=== PATIENT | male | born 1950 | race American Indian/Alaskan Native ===

== ENCOUNTER 2017-08-13 09:10 | Day surgery (SDC) | payer BC, MEDICARE ==
[~2017-08-13 09:10] MED LIST: NACL 0.9% 1000 ML 1,000 ML ONE
[2017-08-13] MEDS ORDERED: WATER FOR IRRIG STERILE IR ONE (09:50)
[2017-08-13] MEDS ORDERED: DIPRIVAN 10 MG/ML IV ONE ×2 (09:58→09:59)
--- NOTE | 2017-08-13 09:58 | Anesthesia Consultation ---
Anesthesia Consult and Med Hx - Airway Anesthetic Teeth Evaluation: Good ROM Head & Neck: Adequate Mental/Hyoid Distance: Adequate Mallampati Class: Class III Intubation Access Assessment: Probably Good - Pulmonary Exam CTA: Yes - Cardiac Exam Cardiac Exam: No Murmur - Pre-Operative Health Status ASA Pre-Surgery Classification: ASA3 Proposed Anesthetic Plan: MAC - Pulmonary Hx Smoking: Yes (CIGARETTES 1/2 TO 1 PPD X 51 YRS) Hx Sleep Apnea: No - Cardiovascular System Hx Hypertension: Yes (FOR 20 YRS, DR. AMBRIZ- PCP) - Central Nervous System Hx Psychiatric Problems: No - Other Systems Hx Alcohol Use: Yes (3 drinks per week) Hx Cancer: Yes (CHRONIC LYMPHOCYTIC LEUKEMIA,DX: IN 2007,LAST CHEMO 12/2011) Hx Obesity: No
[2017-08-13] MEDS ORDERED: VERSED ONE (09:59)
--- NOTE | 2017-08-13 09:59 | Anesthesia Day of Surgery ---
Anesthesia Day of Surgery - Day of Surgery Patient Examined: Yes Patient H&P Reviewed: Yes Patient is NPO: Yes Beta Blockers: No
--- NOTE | 2017-08-13 10:02 | Short Stay Summary ---
Short Stay Documentation Date of service: 08/13/17 Narrative H&P: Colonoscopy for history of polyps 2008 and 2012. - History Principal diagnosis: history of colon polyps H&P: obtained from office - Allergies and Medications Current Medications: Allergies No Known Allergies Allergy (Verified 08/08/17 10:58) Home Medications Medication Instructions Recorded Confirmed Last Taken Type Diltiazem [Cardizem] 30 mg PO QDAY 11/29/12 05/04/14 05/04/14 04:00 History Dutasteride/Tamsulosin HCl [Mary 1 each PO QDAY 11/29/12 05/04/14 05/03/14 History 0.5-0.4 mg] Solifenacin Succinate [Vesicare] 10 mg PO QDAY 11/29/12 05/04/14 05/03/14 05:00 History Tolterodine Tartrate [Tolterodine 4 mg PO QDAY 05/01/14 05/01/14 Unknown History Tartrate ER] Vitamin B Complex [B Complex] 1 each PO DAILY 05/01/14 05/04/14 05/03/14 History Docusate Sodium [Colace] 100 mg PO BID PRN #30 capsule 05/04/14 Unknown Rx HYDROcodone/APAP 5-325 [[place] 1 each PO Q4HR PRN #30 tablet 05/04/14 Unknown Rx 5/325] - Hospital course Hospital course: Uneventful colonoscopy - Disposition Condition at discharge: Good Disposition: DC-01 TO HOME OR SELFCARE - Discharge Diagnoses (1) Colon polyps Status: Acute (2) Personal history of colonic polyps Status: Chronic (3) Diverticulosis Status: Chronic (4) Internal hemorrhoids Status: Chronic Short Stay Discharge Plan Activity: other (no driving today) Diet: other (may resume usual diet) Additional Instructions: 1. Patient to call for pathology results in 14 days if he has not heard from us by then. 2. Repeat colonoscopy in 5 years. 3. Inform first degree relatives (siblings and children) the polyps run in the family, and advise them to begin their colon screening at age 40 rather than age 50. Follow up with: LINDA AMBRIZ JR, MD [Primary Care Provider] - 7 Days
--- NOTE | 2017-08-13 10:36 | Operative Report ---
Operative Report Operative Report: Date: 08/13/2017 Preprocedure diagnosis: Personal history of colon polyps Postprocedure diagnosis: Colon polyps, diverticulosis, internal hemorrhoids Procedure: Colonoscopy with snare polypectomy 2 Medication: Monitored anesthesia care Estimated blood loss: Less than 1 mL Complication: None evident Procedure description: The indications, techniques, potential complications and alternative methods of diagnosis, had been discussed with him in detail prior to the date of the exam, and were reviewed again with him on the morning of the exam. His questions were encouraged and answered and he granted consent. He was familiar with the procedure from prior experience. He was placed in the left lateral decubitus position and was medicated by anesthesia services. The anal sphincter was digitally dilated. The digital exam was unremarkable. The tip of a [employer] video colonoscope was inserted through the anal sphincter and into the rectal vault. It was then advanced proximally under continuous visualization of the lumen to the cecum without difficulty. Extrinsic abdominal compression was employed to minimize loop formation and thereby facilitate instrument advancement. The prep was good and landmarks were identified without difficulty. No pathology was seen in the cecum. The appendiceal orifice and ileocecal valve appeared normal. From the cecum, the instrument was slowly withdrawn, with careful circumferential examination of the colonic mucosa. No pathology was found in the ascending colon. A diverticulum was noted in the hepatic flexure. No pathology was seen in the transverse colon, splenic flexure or descending colon. A few diverticula were noted in the sigmoid colon. Two polyps, 4 and 7 mm in diameter , were excised from the mid sigmoid colon with a cold snare and retrieved. Estimated bleeding was minimal. The remainder of the sigmoid colon and the rectum from the forward view appeared normal. Retroflexion in the rectum revealed internal hemorrhoids without stigmata of bleeding. The instrument was straightened and withdrawn. The procedure was very well tolerated. Post procedure he was monitored in the recovery area of the GI lab to ensure stability prior to his release. See the outpatient record for details regarding instructions to patient, medications and plans for follow-up. Endoscopic assessment: 1. 2 sessile polyps, 4 and 7 mm, sigmoid colon 2. Diverticulosis 3. Internal hemorrhoids Suman David M.D. Dictated 08/13/2017 at 10:28 AM
[2017-08-13 11:00] VITALS: BP 107/68
== END 2017-08-13 09:11 | disposition home or self-care (01) ==
LOC: GIO 09:10
PROVIDERS: ATTEND Internal Medicine Gastroenterology
DX: Z12.11 Encounter for screening for malignant neoplasm of colon (principal); K63.5 Polyp of colon; K64.8 Other hemorrhoids; K57.30 Diverticulosis of large intestine without perforation or abscess without bleeding; I10 Essential (primary) hypertension; F17.200 Nicotine dependence, unspecified, uncomplicated; Z98.890 Other specified postprocedural states; Z79.899 Other long term (current) drug therapy; Z85.89 Personal history of malignant neoplasm of other organs and systems
CPT/HCPCS: 45385; 88305; J2250; J2704; J7030